=== PATIENT | female | born 1950 | race Caucasian/White ===

== ENCOUNTER → 2020-05-29 | Outpatient (CLI) | payer MEDICARE, OTHER ==
[2020-05-29] VITALS (22 sets, daily range): BP systolic 63–159; BP diastolic 38–86
== END | disposition home or self-care (01) ==
LOC: CARD DIAG 09:30
PROVIDERS: ATTEND Internal Medicine Cardiovascular Disease
DX: R42 Dizziness and giddiness (principal)
CPT/HCPCS: 93660

== ENCOUNTER 2021-02-03 14:27 | Outpatient (CLI) | payer MEDICARE, OTHER ==
[~2021-02-03 14:27] MED LIST: ASPI-1 PO; ATOR40TA71 PO; CHOL100025 PO; GLIP5TAB13 PO; HYDR25TA5 PO; LEVO50TA PO; LISI40TA13 PO; METF-950 PO; METO-384 PO; PIOG30TA72 PO
== END 2021-02-03 23:59 | disposition home or self-care (01) ==
LOC: VAS 14:27
PROVIDERS: ATTEND Orthopaedic Surgery
DX: I82.431 Acute embolism and thrombosis of right popliteal vein (principal); M17.11 Unilateral primary osteoarthritis, right knee
CPT/HCPCS: 93971

== ENCOUNTER 2021-03-16 14:46 | Emergency (ER) | payer MEDICARE, OTHER ==
[~2021-03-16] VITALS: Ht 162.6 cm; Wt 90.0 kg
[2021-03-16 14:51] VITALS: BP 133/58
[2021-03-16 17:01] LABS: BASOPHILS # (AUTO) 0.1 X10'3 (0-0.2); BASOPHILS % (AUTO) 0.7 % (0-1); EOSINOPHILS # (AUTO) 0.2 X10'3 (0-0.9); EOSINOPHILS % (AUTO) 2.3 % (0-6); HEMATOCRIT 34.9 % (35.0-45.0); HEMOGLOBIN 11.4 g/dl (12.0-16.0); LYMPHOCYTES % (AUTO) 23.4 % (21-51); MEAN CORPUSCULAR HEMOGLOBIN 28.4 PG (27.0-31.0); MEAN CORPUSCULAR HGB CONC 32.6 g/dL (33.0-36.5); MEAN CORPUSCULAR VOLUME 87.2 FL (78-98); MEAN PLATELET VOLUME 8.5 FL (7.4-10.4); MONOCYTES # (AUTO) 0.6 X10'3 (0-0.9); MONOCYTES % (AUTO) 7.6 % (2-12); NEUTROPHILS # (AUTO) 5.5 X10'3 (1.8-7.7); PLATELET COUNT 383 X10'3 (140-440); RED CELL DISTRIBUTION WIDTH 14.7 % (11.5-14.5); WHITE BLOOD COUNT 8.4 X10'3 (4.5-11.0)
--- NOTE | 2021-03-16 17:09 | NUR ---
VASCULAR AT BEDSIDE.
[2021-03-16 17:13] LABS: CLARITY,URINE SLIGHTLY CLOUDY (Clear); COLOR,URINE YELLOW (Yellow); GLUCOSE, URINE NEGATIVE (Neg); KETONES,URINE NEGATIVE (Neg); LEUKOCYTE ESTERASE ,URINE NEGATIVE (Neg); NITRITES, URINE POSITIVE (Neg); OCCULT BLOOD,URINE NEGATIVE (Neg); PROTEIN,URINE NEGATIVE (Neg); UROBILINOGEN,URINE 0.2 E.U/dL (0.2-1.0)
[2021-03-16 17:15] LABS: ALANINE AMINOTRANSFERASE 18 U/L (12-78); ALBUMIN 3.9 G/DL (3.4-5.0); ALKALINE PHOSPHATASE 101 IU/L (46-116); ANION GAP 11 (8-16); ASPARTATE AMINO TRANSFERASE 16 U/L (10-37); BILIRUBIN,TOTAL 0.3 MG/DL (0.1-1.0); BLOOD UREA NITROGEN 30 MG/DL (7-18); BUN/CREATININE RATIO 23.1 (6.6-38.0); CALCIUM 9.6 MG/DL (8.5-10.1); CHLORIDE 100 MMOL/L (99-107); GLUCOSE 89 MG/DL (70-104); MAGNESIUM 1.7 MG/DL (1.5-2.4); POTASSIUM 4.2 MMOL/L (3.5-5.1); SODIUM 137 MMOL/L (135-145); TOTAL CARBON DIOXIDE 26.3 MMOL/L (24-32); eGFR 40 ML/MIN
[2021-03-16 17:38] LABS: UA COLLECTION TYPE CLN CATCH MIDSTREAM
[2021-03-16 17:43] LABS: SQUAMOUS EPITHELIAL CELL,UR FEW /LPF (FEW)
[2021-03-16 17:45] LABS: BACTERIA,URINE 3+ /HPF (Neg); RBC,URINE NONE SEEN /HPF (0-2); WBC,URINE 0-4 /HPF (0-4)
[2021-03-16 17:48] LABS: CAL OXALATE CRYSTALS 3+ /HPF (NEGATIVE)
--- NOTE | 2021-03-16 18:26 | NUR ---
PT TO XRAY
[2021-03-16] MEDS ORDERED: iohexol 350MG/ML 100ml bottle IV ONE (18:49)
[2021-03-16] MEDS ORDERED: MESSAGE TO NURSING PO SCH (19:00)
[2021-03-16] MEDS ORDERED: CEPH250T PO (20:19)
== END 2021-03-16 20:41 | disposition home or self-care (01) ==
LOC: ER 14:47
DX: N39.0 Urinary tract infection, site not specified (principal); M25.461 Effusion, right knee; R20.0 Anesthesia of skin; R42 Dizziness and giddiness; I25.10 Atherosclerotic heart disease of native coronary artery without angina pectoris; E78.00 Pure hypercholesterolemia, unspecified; I10 Essential (primary) hypertension; Z86.718 Personal history of other venous thrombosis and embolism; Z98.890 Other specified postprocedural states; Z79.82 Long term (current) use of aspirin; Z79.2 Long term (current) use of antibiotics; Z79.899 Other long term (current) drug therapy
CPT/HCPCS: 36415; 70450; 70496; 70498; 73564; 80053; 81001; 83735; 85025; 87088; 93971; 99285; Q9967; 87077; 87186

== ENCOUNTER → 2021-06-17 | Outpatient (CLI) | payer MEDICARE, OTHER ==
[2021-06-17 09:21] LABS: TOTAL HEMOGLOBIN 9.8 G/dl (12.0-16.0)
== END | disposition home or self-care (01) ==
LOC: RT 08:48
PROVIDERS: ATTEND Internal Medicine Cardiovascular Disease
DX: J44.9 Chronic obstructive pulmonary disease, unspecified (principal); R06.02 Shortness of breath; Z79.899 Other long term (current) drug therapy
CPT/HCPCS: 71046; 85018; 94010; 94727; 94729

== ENCOUNTER 2022-02-02 05:52 | Day surgery (SDC) | payer MEDICARE, OTHER ==
[2022-02-01 12:21] LABS: BASOPHILS # (AUTO) 0.1 X10'3 (0-0.2); BASOPHILS % (AUTO) 1.3 % (0-1); EOSINOPHILS # (AUTO) 0.2 X10'3 (0-0.9); EOSINOPHILS % (AUTO) 3.2 % (0-6); HEMATOCRIT 37.2 % (35.0-45.0); HEMOGLOBIN 12.2 g/dl (12.0-16.0); LYMPHOCYTES # (AUTO) 1.3 X10'3 (1.1-4.8); LYMPHOCYTES % (AUTO) 16.8 % (21-51); MEAN CORPUSCULAR HEMOGLOBIN 29.4 PG (27.0-31.0); MEAN CORPUSCULAR HGB CONC 32.7 g/dL (33.0-36.5); MEAN PLATELET VOLUME 9.5 FL (7.4-10.4); MONOCYTES # (AUTO) 0.5 X10'3 (0-0.9); MONOCYTES % (AUTO) 6.7 % (2-12); NEUTROPHILS # (AUTO) 5.5 X10'3 (1.8-7.7); PLATELET COUNT 305 X10'3 (140-440); RED BLOOD COUNT 4.14 X10'6 (4.20-5.60); WHITE BLOOD COUNT 7.7 X10'3 (4.5-11.0)
[2022-02-01 12:28] LABS: ALBUMIN 3.5 G/DL (3.4-5.0); ANION GAP 9 (8-16); BLOOD UREA NITROGEN 24 MG/DL (7-18); CALCIUM 8.9 MG/DL (8.5-10.1); CHLORIDE 104 MMOL/L (99-107); GLUCOSE 143 MG/DL (70-104); POTASSIUM 4.2 MMOL/L (3.5-5.1); SODIUM 140 MMOL/L (135-145); TOTAL CARBON DIOXIDE 27.3 MMOL/L (24-32); eGFR 44 ML/MIN
[2022-02-01 12:29] LABS: APTT 26 SECONDS (22-32)
[2022-02-02] VITALS (10 sets, daily range): BP systolic 106–180; BP diastolic 48–74
[~2022-02-02 05:52] MED LIST changes: +METF-1203 PO; -METF-950 PO
[2022-02-02] MEDS ORDERED: normal saline 1000ml 1,000 ML IV SCH ×2 (06:10→10:20)
[2022-02-02] MEDS ORDERED: HYDR12.55 PO (06:34)
[2022-02-02] MEDS ORDERED: APIX5TAB3 PO (06:40)
[2022-02-02] MEDS ORDERED: AMIO200T61 PO (06:40)
[2022-02-02] MEDS ORDERED: midazolam 1 mg/ML 2ml injection ONE (07:25)
[2022-02-02] MEDS ORDERED: fentaNYL/PF 50MCG/1 ML 2ML syringe ONE (07:25)
[2022-02-02] MEDS ORDERED: LIDOcaine 1% w/EPI 1:100,000 30ml vial (MDV) ONE (07:26)
[2022-02-02] MEDS ORDERED: ceFAZolin 1000mg inj ONE (07:26)
[2022-02-02] MEDS ORDERED: hydrALAZINE 20mg/ml inj. IV ONE (08:33)
[2022-02-02] MEDS ORDERED: metoprolol tartrate 1mg/ml inj IV ONE ×2 (08:48→08:56)
[2022-02-02] MEDS ORDERED: HYDROcodone/acetaminophen 10/325mg tab PO PRN (10:15)
[2022-02-02] MEDS ORDERED: HYDROcodone/acetaminophen 5mg/325mg tablet PO PRN (10:15)
--- NOTE | 2022-02-02 10:27 | NUR ---
Contacted MD about take home antibiotic. New order given, faxed to patient pharmacy.
--- NOTE | 2022-02-02 10:49 | NUR ---
Contacted pt family member on discharge time. Pts states he will be here 30 min prior to discharge.
[2022-02-02] MEDS ORDERED: VANCOMYCIN 1GM/200ML IVPB 200 ML IV ONE (11:00)
--- NOTE | 2022-02-02 11:26 | NUR ---
Pt off unit for ordered xray
[2022-02-03] MEDS ORDERED: cefazolin/dext.iso 2gm/50ml IV ONE (05:30)
== END 2022-02-02 15:00 | disposition home or self-care (01) ==
LOC: SSTAY O 05:52
PROVIDERS: ATTEND Internal Medicine Cardiovascular Disease
DX: I49.5 Sick sinus syndrome (principal); Z45.09 Encounter for adjustment and management of other cardiac device; I48.0 Paroxysmal atrial fibrillation; I10 Essential (primary) hypertension; I25.10 Atherosclerotic heart disease of native coronary artery without angina pectoris; J44.9 Chronic obstructive pulmonary disease, unspecified; G47.33 Obstructive sleep apnea (adult) (pediatric); M19.90 Unspecified osteoarthritis, unspecified site; E78.49 Other hyperlipidemia; E11.9 Type 2 diabetes mellitus without complications; Z95.5 Presence of coronary angioplasty implant and graft; Z90.710 Acquired absence of both cervix and uterus; Z79.82 Long term (current) use of aspirin; Z79.899 Other long term (current) drug therapy; Z79.84 Long term (current) use of oral hypoglycemic drugs; Z98.890 Other specified postprocedural states; Z82.3 Family history of stroke
CPT/HCPCS: 33208; 33286; 36415; 71046; 80048; 85025; 85610; 85730; 93005; 99152; 99153; C1785; C1894; C1898; J0360; J0690; J2250; J3010; J3370; J3490; J7030; A4620; A6258

== ENCOUNTER 2022-09-18 14:44 | Emergency (ER) | payer MEDICARE, OTHER ==
[~2022-09-18] VITALS: Ht 160 cm; Wt 95.0 kg
[~2022-09-18 14:44] MED LIST changes: +AMIO200T61 PO; +ASCO250T48 PO; -ASPI-1 PO; +CYAN250010 PO; -GLIP5TAB13 PO; +HYDR-3964 PO; -HYDR25TA5 PO; -LEVO50TA PO; +LEVO75TA98 PO; -PIOG30TA72 PO; +WARF6TAB49 PO
[2022-09-18] MEDS ORDERED: HYDROcodone/acetaminophen 10/325mg tab PO ONE (15:45)
[2022-09-18 16:24] LABS: BASOPHILS # (AUTO) 0.1 X10'3 (0-0.2); BASOPHILS % (AUTO) 0.9 % (0-1); EOSINOPHILS # (AUTO) 0.4 X10'3 (0-0.9); EOSINOPHILS % (AUTO) 3.1 % (0-6); HEMATOCRIT 33.1 % (35.0-45.0); HEMOGLOBIN 11.2 g/dl (12.0-16.0); LYMPHOCYTES # (AUTO) 1.4 X10'3 (1.1-4.8); LYMPHOCYTES % (AUTO) 11.6 % (21-51); MEAN CORPUSCULAR HEMOGLOBIN 29.5 PG (27.0-31.0); MEAN CORPUSCULAR HGB CONC 33.8 g/dL (33.0-36.5); MEAN CORPUSCULAR VOLUME 87.3 FL (78-98); MEAN PLATELET VOLUME 8.6 FL (7.4-10.4); MONOCYTES # (AUTO) 0.8 X10'3 (0-0.9); MONOCYTES % (AUTO) 6.9 % (2-12); NEUTROPHILS # (AUTO) 9.4 X10'3 (1.8-7.7); NEUTROPHILS % (AUTO) 77.5 % (42-75); PLATELET COUNT 377 X10'3 (140-440); RED BLOOD COUNT 3.79 X10'6 (4.20-5.60); WHITE BLOOD COUNT 12.2 X10'3 (4.5-11.0)
[2022-09-18 16:30] LABS: ALANINE AMINOTRANSFERASE 19 U/L (12-78); ALBUMIN 3.2 G/DL (3.4-5.0); ALBUMIN/GLOBULIN RATIO 0.7 (1.1-1.5); ALKALINE PHOSPHATASE 81 IU/L (46-116); ANION GAP 9 (8-16); ASPARTATE AMINO TRANSFERASE 20 U/L (10-37); BILIRUBIN,TOTAL 0.5 MG/DL (0.1-1.0); BLOOD UREA NITROGEN 19 MG/DL (7-18); BUN/CREATININE RATIO 17.3 (6.6-38.0); CALCIUM 9.2 MG/DL (8.5-10.1); CHLORIDE 97 MMOL/L (99-107); GLUCOSE 161 MG/DL (70-104); POTASSIUM 4.2 MMOL/L (3.5-5.1); SODIUM 134 MMOL/L (135-145); TOTAL CARBON DIOXIDE 28.2 MMOL/L (24-32); TOTAL PROTEIN 7.5 G/DL (6.4-8.2); eGFR 49 ML/MIN
[2022-09-18] MEDS ORDERED: piperacillin/tazo 3.375gm/50ml 50 ML IV ONE (18:35)
[2022-09-18] MEDS ORDERED: vancomycin/NS 1 GM ADD-VANTAGE 250 ML IV ONE (18:35)
[2022-09-18] MEDS ORDERED: HYDROcodone/acetaminophen 10/325mg tab PO PRN (19:45)
[2022-09-18] MEDS ORDERED: magnesium 4gm in 100ml NS 100 ML IV PRN (19:45)
[2022-09-18] MEDS ORDERED: potassium Cl 20 mEq SR tablet PO PRN ×2 (19:45)
[2022-09-18] MEDS ORDERED: morphine 2 MG/ML inj. syringe IV PRN ×2 (19:45)
[2022-09-18] MEDS ORDERED: potassium Cl 40MEQ/1/2NS 520ml 520 ML IV PRN (19:45)
[2022-09-18] MEDS ORDERED: HYDROcodone/acetaminophen 5mg/325mg tablet PO PRN (19:45)
[2022-09-18] MEDS ORDERED: ondansetron/PF 4mg/2ml inj IV PRN (19:45)
[2022-09-18] MEDS ORDERED: magnesium Cl slow-release 64mg tablet PO PRN (19:45)
[2022-09-18] MEDS ORDERED: acetaminophen 325mg tablet PO PRN ×2 (19:45)
[2022-09-18] MEDS ORDERED: K and/or MAG REPLACEMENT MC SCH (20:00)
[2022-09-18] MEDS ORDERED: enoxaparin 30mg/0.3ml syringe SQ SCH (20:00)
[2022-09-18] MEDS ORDERED: temazepam 15mg capsule PO PRN (21:00)
[2022-09-18] MEDS ORDERED: AMOX-117 PO (21:59)
[2022-09-18 23:12] VITALS: BP 172/103
[2022-09-19] MEDS ORDERED: vancomycin/NS 1 GM ADD-VANTAGE 250 ML IV SCH (09:00)
== END 2022-09-18 23:14 | disposition admitted as inpatient to this hospital (09) ==
LOC: ER 14:44 → ED HOLD 19:45 → UNDOADMIN 19:45 → UNDODISIN 23:15
DX: G89.18 Other acute postprocedural pain (principal); M25.562 Pain in left knee; E78.00 Pure hypercholesterolemia, unspecified; I10 Essential (primary) hypertension; I25.10 Atherosclerotic heart disease of native coronary artery without angina pectoris; Z86.718 Personal history of other venous thrombosis and embolism
CPT/HCPCS: 36415; 80053; 83605; 84145; 85025; 87040; 93971; 96365; 96368; 96372; 99285; J1650; J2543; J3370; G0378

== ENCOUNTER 2022-11-27 10:01 | Emergency (ER) | payer MEDICARE, OTHER ==
[~2022-11-27] VITALS: Ht 162.6 cm; Wt 96.0 kg
[2022-11-27] MEDS ORDERED: HYDROcodone/acetaminophen 5mg/325mg tablet PO ONE (13:50)
[2022-11-27 14:16] VITALS: BP 156/94
== END 2022-11-27 14:18 | disposition home or self-care (01) ==
LOC: ER 10:01
DX: M25.552 Pain in left hip (principal); G89.29 Other chronic pain; M54.50 Low back pain, unspecified; E78.00 Pure hypercholesterolemia, unspecified; I10 Essential (primary) hypertension; I25.10 Atherosclerotic heart disease of native coronary artery without angina pectoris; R51.9 Headache, unspecified; I48.91 Unspecified atrial fibrillation; Z86.718 Personal history of other venous thrombosis and embolism; W10.8XXA Fall (on) (from) other stairs and steps, initial encounter; Y93.89 Activity, other specified; Y92.89 Other specified places as the place of occurrence of the external cause; Y99.8 Other external cause status
CPT/HCPCS: 70450; 73502; 99285

== ENCOUNTER 2024-08-26 10:29 | Emergency (ER) | payer MEDICARE, OTHER ==
[~2024-08-26] VITALS: Ht 162.6 cm; Wt 92.7 kg
[~2024-08-26 10:29] MED LIST changes: +AMI200T PO; -AMIO200T61 PO; +ASPI81TA53 PO; +PIOG30TA71 PO
[2024-08-26 10:32] VITALS: TEMP 98.7
[2024-08-26 11:07] LABS: BASOPHILS # (AUTO) 0.1 X10'3 (0-0.2); BASOPHILS % (AUTO) 0.6 % (0-1); EOSINOPHILS # (AUTO) 0.3 X10'3 (0-0.9); EOSINOPHILS % (AUTO) 3.2 % (0-6); HEMATOCRIT 35.6 % (35.0-45.0); HEMOGLOBIN 11.8 g/dl (12.0-16.0); LYMPHOCYTES # (AUTO) 1.8 X10'3 (1.1-4.8); LYMPHOCYTES % (AUTO) 21.1 % (21-51); MEAN CORPUSCULAR HEMOGLOBIN 30.3 PG (27.0-31.0); MEAN CORPUSCULAR HGB CONC 33.1 g/dL (33.0-36.5); MEAN CORPUSCULAR VOLUME 91.5 FL (78-98); MEAN PLATELET VOLUME 8.8 FL (7.4-10.4); MONOCYTES # (AUTO) 0.7 X10'3 (0-0.9); MONOCYTES % (AUTO) 7.9 % (2-12); NEUTROPHILS # (AUTO) 5.7 X10'3 (1.8-7.7); NEUTROPHILS % (AUTO) 67.2 % (42-75); PLATELET COUNT 296 X10'3 (140-440); RED BLOOD COUNT 3.89 X10'6 (4.20-5.60); RED CELL DISTRIBUTION WIDTH 14.7 % (11.5-14.5); WHITE BLOOD COUNT 8.5 X10'3 (4.5-11.0)
[2024-08-26] MEDS ORDERED: APIX5TAB3 PO (11:12)
[2024-08-26 11:17] LABS: ALANINE AMINOTRANSFERASE 27 U/L (12-78); ALBUMIN 3.5 G/DL (3.4-5.0); ALKALINE PHOSPHATASE 76 IU/L (46-116); ANION GAP 8 (8-16); ASPARTATE AMINO TRANSFERASE 26 U/L (10-37); BILIRUBIN,TOTAL 0.5 MG/DL (0.1-1.0); BLOOD UREA NITROGEN 27 MG/DL (7-18); BUN/CREATININE RATIO 24.3 (10.0-20.0); CALCIUM 9.3 MG/DL (8.5-10.1); CHLORIDE 102 MMOL/L (99-107); CREATININE 1.11 MG/DL (0.40-0.90); GLUCOSE 123 MG/DL (70-104); POTASSIUM 4.3 MMOL/L (3.5-5.1); SODIUM 138 MMOL/L (135-145); TOTAL CARBON DIOXIDE 28.1 MMOL/L (24-32); TOTAL PROTEIN 7.1 G/DL (6.4-8.2); eCRCL 38 ML/MIN; eGFR 48 ML/MIN
[2024-08-26 11:25] LABS: PRO BRAIN NATRIURETIC PEPTIDE 193 PG/ML (0-125)
[2024-08-26] MEDS: budesonide 0.5mg/2ml UD nebule IH ONE (13:23)
[2024-08-26] MEDS: ipratropium/albuterol 3ml nebule NEB ONE (13:24)
[2024-08-26 13:26] VITALS: PULSE 62; RESP 18; O2SAT 96
[2024-08-26 13:35] VITALS: PULSE 66; RESP 18; O2SAT 99
[2024-08-26] MEDS: predniSONE 20 mg tablet PO ONE (15:28)
[2024-08-26] MEDS ORDERED: BUDE10.22 INH (15:29)
[2024-08-26] MEDS ORDERED: PRED10TA23 PO (15:29)
[2024-08-26 15:31] VITALS: BP 173/56; PULSE 88; RESP 16; O2SAT 96
== END 2024-08-26 15:48 | disposition home or self-care (01) ==
LOC: ER 10:31
DX: J45.909 Unspecified asthma, uncomplicated (principal); I48.91 Unspecified atrial fibrillation; I25.10 Atherosclerotic heart disease of native coronary artery without angina pectoris; E78.00 Pure hypercholesterolemia, unspecified; I13.0 Hypertensive heart and chronic kidney disease with heart failure and stage 1 through stage 4 chronic kidney disease, or unspecified chronic kidney disease; I50.32 Chronic diastolic (congestive) heart failure; N18.9 Chronic kidney disease, unspecified; E11.22 Type 2 diabetes mellitus with diabetic chronic kidney disease; E66.9 Obesity, unspecified; E03.9 Hypothyroidism, unspecified; E78.5 Hyperlipidemia, unspecified; Z86.718 Personal history of other venous thrombosis and embolism; Z95.0 Presence of cardiac pacemaker; Z98.890 Other specified postprocedural states; Z79.899 Other long term (current) drug therapy; Z79.51 Long term (current) use of inhaled steroids; Z79.84 Long term (current) use of oral hypoglycemic drugs; Z79.52 Long term (current) use of systemic steroids
CPT/HCPCS: 36415; 71045; 80053; 83880; 84484; 85025; 85379; 93005; 94640; 99285; J7512; Z7610; 94760

== ENCOUNTER 2024-11-29 07:39 | Day surgery (SDC) | payer MEDICARE, OTHER ==
[~2024-11-29] VITALS: Ht 162.6 cm; Wt 96.3 kg
[~2024-11-29 07:39] MED LIST changes: -AMI200T PO; +APIX5TAB3 PO; -ASCO250T48 PO; -ASPI81TA53 PO; +BUDE10.22 INH; -HYDR-3964 PO; +METO50TA17 PO; +VITC500T PO; -WARF6TAB49 PO
[2024-11-29 08:04] VITALS: BP 178/72; PULSE 91; RESP 22
[2024-11-29] MEDS ORDERED: propofol inj 20 ML IV ONE (08:41)
[2024-11-29] MEDS ORDERED: midazolam 1 mg/ML 2ml injection ONE (08:41)
[2024-11-29] MEDS ORDERED: fentaNYL/PF 50MCG/1 ML 2ML syringe ONE (08:41)
[2024-11-29] MEDS ORDERED: simethicone 40mg/0.6ml oral drops 30ml ONE (08:45)
[2024-11-29 09:05] VITALS: BP 142/66; PULSE 77; RESP 19; O2SAT 99
[2024-11-29 09:15] VITALS: BP 134/63; PULSE 80; RESP 20; O2SAT 100
[2024-11-29 09:25] VITALS: BP 132/72; PULSE 87; RESP 18; O2SAT 100
[2024-11-29 09:35] VITALS: BP 175/79; PULSE 89; RESP 16; O2SAT 95
== END 2024-11-29 09:45 | disposition home or self-care (01) ==
LOC: GI LAB 07:39
PROVIDERS: ATTEND Internal Medicine Gastroenterology
DX: R12 Heartburn (principal); K31.89 Other diseases of stomach and duodenum; I10 Essential (primary) hypertension; I25.10 Atherosclerotic heart disease of native coronary artery without angina pectoris; K29.50 Unspecified chronic gastritis without bleeding; K21.9 Gastro-esophageal reflux disease without esophagitis; J44.9 Chronic obstructive pulmonary disease, unspecified; E11.9 Type 2 diabetes mellitus without complications; Z95.0 Presence of cardiac pacemaker; Z95.5 Presence of coronary angioplasty implant and graft
CPT/HCPCS: 43239; A4620; J2250; J2704; J3010; J7030; Z7512; 99152

== ENCOUNTER 2025-10-11 10:23 | Day surgery (SDC) | payer MEDICARE, OTHER ==
[2025-10-10 11:29] LABS: MEAN PLATELET VOLUME 8.8 FL (7.4-10.4); RED CELL DISTRIBUTION WIDTH 15.6 % (11.5-14.5)
[2025-10-10 11:41] LABS: CREATININE 1.39 MG/DL (0.40-0.90); TOTAL CARBON DIOXIDE 27.2 MMOL/L (24-32); eGFR 37 ML/MIN
[2025-10-10 11:44] LABS: APTT 28 SECONDS (22-32); INR 1.2 INR
[2025-10-11] VITALS (11 sets, daily range): BP systolic 121–141; BP diastolic 52–69; PULSE 69–80; RESP 12–15; TEMP 98.2; O2SAT 95–99
[~2025-10-11] VITALS: Ht 162.6 cm; Wt 96.0 kg
[~2025-10-11 10:23] MED LIST changes: -LISI40TA13 PO; +LISI40TA20 PO; -METO50TA17 PO
--- NOTE | 2025-10-11 10:52 | ELECTROCARDIOGRAPH REPORT ---
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 GABINO Moss Measurements Intervals [place] Rate: 69 P: 16 ND: 188 QRS: -8 QRSD: 86 T: 65 QT: 390 QTc: 418 Interpretive Statements Sinus rhythm Electronically Signed On 10-11-2025 17:56:[address] GABINO Moss Please click the below link to view image of tracing.
[2025-10-11] MEDS ORDERED: LEVO88TA7 PO (11:27)
[2025-10-11] MEDS ORDERED: WARF6TAB49 PO (11:27)
[2025-10-11] MEDS ORDERED: NITR0.4T48 (11:27)
[2025-10-11] MEDS ORDERED: NIFE-72 PO (11:27)
[2025-10-11] MEDS ORDERED: LOSA25TA41 PO (11:27)
[2025-10-11] MEDS ORDERED: METO50TA7 PO (11:27)
[2025-10-11] MEDS ORDERED: NITR0.4T48 SL (11:28)
[2025-10-11] MEDS: sodium bicarbonate 1meq/ml syr 150 ML in dextrose 5%-water 1,000 ML IV ONE (11:42)
[2025-10-11] MEDS ORDERED: LIDOcaine 1% (10mg/ml) 2ml vial ONE (12:04)
[2025-10-11] MEDS ORDERED: verapamil 2.5 mg/ml inj IV ONE (12:04)
[2025-10-11] MEDS ORDERED: iohexol 350 MG/ML 50ML vial IV ONE (12:05)
[2025-10-11] MEDS ORDERED: heparin 1,000unit/ml 10ml vial 10 ML ONE (12:05)
[2025-10-11] MEDS ORDERED: fentaNYL/PF 50MCG/1 ML 2ML syringe ONE (12:05)
[2025-10-11] MEDS ORDERED: midazolam 1 mg/ML 2ml injection ONE (12:05)
[2025-10-11] MEDS ORDERED: nitroGLYCERIN 500mcg/5mL D5W 5 ML IV ONE ×2 (12:06→13:21)
[2025-10-11] MEDS ORDERED: heparin 25,000 UNIT/250ml bag 250 ML IV ONE (13:03)
[2025-10-11] MEDS ORDERED: metoprolol tartrate 1mg/ml inj IV ONE (13:14)
[2025-10-11 13:28] LABS: ISTAT HGB ART 11.2 g/dl (12.0-16.0); ISTAT Hct ART 33 %PCV (35-45); ISTAT O2 SATURATION ARTERIAL 93 % (95-98); ISTAT SOURCE ART
[2025-10-11] MEDS ORDERED: clopidogrel 300mg tablet ONE (13:36)
[2025-10-11] MEDS ORDERED: CLOP75TA34 PO (14:50)
[2025-10-11] MEDS ORDERED: ASPI81TA52 PO (14:50)
[2025-10-11] MEDS ORDERED: ROSU40TA PO (14:50)
--- NOTE | 2025-10-11 14:52 | ELECTROCARDIOGRAPH REPORT ---
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 GABINO Moss Measurements Intervals [place] Rate: 66 P: 48 MT: 200 QRS: 32 QRSD: 104 T: 72 QT: 422 QTc: 443 Interpretive Statements Sinus rhythm Anterior infarct, old Electronically Signed On 10-11-2025 17:57:[address] GABINO Moss Please click the below link to view image of tracing.
[2025-10-11] MEDS ORDERED: clopidogrel 300mg tablet PO ONE (15:00)
--- NOTE | 2025-10-11 21:12 | CARDIOLOGY REPORT ---
DATE OF SERVICE: 10/11/2025 DICTATING PHYSICIAN: GABINO Moss MD CARDIAC CATHETERIZATION REPORT GENDER: Female. AGE: 75 years. HEIGHT: 162 cm. WEIGHT: 96 kg. PRIMARY PHYSICIAN: Dr. Viraj Javed VENEER LATHE OPERATOR: GABINO Moss MD INDICATION: The patient is a 75-year-old postmenopausal female with diabetes, hypertension, hyperlipidemia, sick sinus syndrome, status post PPM/PAF with CAD, coronary artery stenting with exertional fatigue and shortness of breath. The patient recently had a myocardial perfusion scan which shows the anterior reversibility. After discussing risks, benefits, and alternative options, the patient underwent coronary angiography. Risks, benefits, alternative options discussed. Informed consent obtained. The patient's history of CAD dates back to 08/27/2011, when she was found to have proximal mid LAD 90% narrowing, which was successfully angioplastied and stented on 01/30/2015 with a Promus stent. DESCRIPTION OF PROCEDURE: The patient underwent left heart catheterization via right radial approach, 6-Greenlandic right radial sheath. Post procedure access site. Hemostasis secured with a right radial band. The patient had a left heart catheterization carried out from the right antecubital approach, 6-Greenlandic sheath, post procedure access site, hemostasis secured with manual compression. The patient tolerated the procedure well. COMPLICATIONS: None. PROCEDURES DONE: 1. Ultrasound-guided right radial artery visualization and access. 2. Right heart catheterization. 3. Left heart catheterization. 4. LVG. 5. Coronary cineangiography. 6. PTCA stenting of the proximal LAD. 7. Conscious sedation of 60 minutes. FINDINGS: HEMODYNAMICS: Aortic systolic 102, diastolic 40, mean 61 mmHg. LVEDP of 7 mmHg with no significant gradient across the aortic valve. Right atrial mean: 8 mmHg. RV: 25/1 mmHg. PA: 30/6 mmHg. Pulmonary capillary wedge: 8 mmHg. Aortic oxygen saturation: 93%. Pulmonary artery oxygen saturation of 72%. Cardiac output by thermodilution was 6.9 L/minute. Cardiac index was 3.45 liters/minute/m2. LEFT VENTRICULOGRAM: Overall left ventricular systolic function is normal with an LV ejection fraction of 65%. CORONARY CINEANGIOGRAPHY: The patient has almost separate circumflex and LAD. LAD: The medium caliber vessel arising from the left main coronary artery, has a proximal 80% narrowing. This narrowing is proximal to the prior stent. Mid LAD has 40% followed by 60-70% narrowing. Diagonal 1 and 2 are 1.5 mm caliber with mild irregularities. LAD ends at the apex by wrapping around the apex and dividing into 2 divisions. Circumflex artery is a medium caliber. Diagonal 2 and 3 are 1.5 mm. Diagonal 1 is 2 mm caliber with mild luminal irregularities. Circumflex artery is a medium caliber vessel with almost separate ostia, continues as a principal obtuse marginal branch with mild luminal irregularities. Right coronary artery is a medium caliber dominant vessel arising from the right aortic sinus and coursing right AV groove and dividing into PDA and the posterolateral branch. Right coronary artery supplies a large area of inferior wall and lateral wall. The mid and distal RCA shows areas of 40% narrowing. PTCA STENTING OF THE PROXIMAL LAD: A 6-Greenlandic XP LAD 3.5 guide without side holes gave good support. Lesion was crossed with a PT2 Moderate wire. The lesion was angioplastied with a 2.75 x 12 mm noncompliant balloon at 12 atmospheric pressure. The lesion was stented with a 3.5 x 18 mm Esteban stent starting from the proximal half of the prior stent to the proximal LAD close to the ostium. Under the prior 12 atmospheric pressure. The stent was postdilated with a 3.5 x 12 mm noncompliant balloon at 12-14 atmospheres. Post-procedure DIMITRY-3 flow was achieved. The patient tolerated the procedure with no complication. IMPRESSION: 1. A 75-year-old female with LVEF 65% to 70%. 2. LVEDP of 7 mmHg with no significant gradient across the aortic valve. 3. Pulmonary capillary refills of 8 mmHg. 4. PA pressure of 30/6 mmHg. 5. Left main almost separate ostia. 6. Proximal LAD 80% narrowing proximal to the prior stent, successfully angioplastied and stented with a 3.5 Resolute Esetban stent overlapping the prior stent. 7. Mid LAD has a 40% and 60-70% narrowing. 8. The mid LAD lesions were adequately evaluated post stenting of the proximal LAD, and then because of the tortuosity and non-critical nature of those lesions and eccentric nature of the 60-70%, it was decided to watch it conservatively and double her statin dose and then get a stress myocardial perfusion scan in 6-9 months and decide on further management. RECOMMENDATIONS: The patient was recommended diet, weight loss, and exercise program. Uninterrupted dual antiplatelet therapy for at least 1 year. GABINO Moss MD TID: [id number] RECEIPT: [id number] SHAHBAZ/ELIGIO cc: Viraj Javed [facility]
[2025-10-12] MEDS ORDERED: aspirin 81mg, enteric-coated 1 TAB TABLET.DR PO SCH (08:00)
[2025-10-14 06:14] LABS: ISTAT HGB MIX 11.2 g/dl (12.0-16.0); ISTAT Hct MIX 33 %PCV (35-45); ISTAT O2 SATURATION MIX VENOUS 72 % (60-80); ISTAT SOURCE VEN
== END 2025-10-11 18:50 | disposition home or self-care (01) ==
LOC: SSTAY O 10:23
PROVIDERS: ATTEND Internal Medicine Cardiovascular Disease
DX: I25.10 Atherosclerotic heart disease of native coronary artery without angina pectoris (principal); E11.9 Type 2 diabetes mellitus without complications; E78.5 Hyperlipidemia, unspecified; I10 Essential (primary) hypertension; I25.2 Old myocardial infarction; I48.0 Paroxysmal atrial fibrillation; I49.5 Sick sinus syndrome; J44.9 Chronic obstructive pulmonary disease, unspecified; R94.39 Abnormal result of other cardiovascular function study; Z78.0 Asymptomatic menopausal state; Z95.0 Presence of cardiac pacemaker; Z95.5 Presence of coronary angioplasty implant and graft; Z90.710 Acquired absence of both cervix and uterus; Z96.651 Presence of right artificial knee joint; Z82.49 Family history of ischemic heart disease and other diseases of the circulatory system
CPT/HCPCS: 36415; 80048; 82803; 82948; 85014; 85025; 85347; 85610; 85730; 93005; 93460; A6258; A6402; C1725; C1751; C1769; C1874; C1894; C9600; J1644; J2003; J2250; J3010; J3490; J7030; J7070; Q0163; Q9967; Z7610; 76937; 99152; 99153